=== PATIENT | male | born 1950 | race Caucasian/White ===

== ENCOUNTER 2022-07-12 09:10 | Outpatient (CLI) | payer OTHER, SELFPAY ==
[2022-07-12 15:10] LABS: Albumin* 4.3 g/dL (3.3-5.0); Chloride* 107 mmol/L (96-114); Potassium* 4.3 mmol/L (3.6-5.1); Sodium* 139 mmol/L (135-149)
[2022-07-12 15:12] LABS: Cholesterol* 198 mg/dL (90-199)
[2022-07-12 15:13] LABS: Alanine Aminotransferase* 26 U/L (4-50); Alkaline Phosphatase* 115 U/L (40-150); Aspartate Amino Transferase* 32 U/L (12-35); Bilirubin Total* 0.4 mg/dL (0.1-1.5); Blood Urea Nitrogen* 31 mg/dL (7-30); Calcium* 9.7 mg/dL (8.4-10.6); Carbon Dioxide* 25 mmol/L (20-32); Creatinine* 1.8 mg/dL (0.5-1.5); Estimated Glomerular Filt Rate 40 ml/min; Glucose* 127 mg/dL (60-115); Total Protein* 7.1 g/dL (6.0-8.3); Triglycerides* 122 mg/dL (40-149)
[2022-07-12 15:14] LABS: HDL Cholesterol* 103 mg/dL (>=40); LDL Cholesterol Calculated 71 mg/dL (<100)
== END 2022-07-12 09:11 | disposition home or self-care (01) ==
PROVIDERS: PCP Family Medicine; Visit Provider Family Medicine
DX: E78.5 Hyperlipidemia, unspecified (principal); I10 Essential (primary) hypertension; R73.03 Prediabetes
CPT/HCPCS: 80053; 80061

== ENCOUNTER 2022-08-07 11:11 | Outpatient (CLI) | payer OTHER, SELFPAY ==
[2022-08-07 15:00] LABS: Albumin* 4.1 g/dL (3.3-5.0); Chloride* 110 mmol/L (96-114); Potassium* 4.2 mmol/L (3.6-5.1); Sodium* 141 mmol/L (135-149)
[2022-08-07 15:03] LABS: Blood Urea Nitrogen* 38 mg/dL (7-30); Carbon Dioxide* 21 mmol/L (20-32); Creatinine* 2.1 mg/dL (0.5-1.5); Estimated Glomerular Filt Rate 33 ml/min; Glucose* 111 mg/dL (60-115)
[2022-08-07 15:04] LABS: Calcium* 9.3 mg/dL (8.4-10.6); Phosphorus* 4.4 mg/dL (2.5-4.5); Uric Acid* 9.8 mg/dL (2.2-8.4)
[2022-08-07 15:09] LABS: C Reactive Protein* < 0.5 mg/dL (0.5-1.0)
[2022-08-07 15:11] LABS: Creatinine Urine 67.7 mg/dL
[2022-08-07 15:16] LABS: Microalbumin Creatinine Ratio 140 mg/g (0-30); Microalbumin Urine 10 mg/dL
[2022-08-09 04:13] LABS: Kappa Qnt Free Light Chains 57.77 mg/L (3.30-19.40); Kappa-Lambda Qt FLC W/ Ratio 0.49 (0.26-1.65); Lambda Qnt Free Light Chains 118.56 mg/L (5.71-26.30)
[2022-08-10 12:11] LABS: Albumin 3.91 g/dL (3.75-5.01); Alpha 1 Globulin 0.29 g/dL (0.19-0.46); Alpha 2 Globulin 0.85 g/dL (0.48-1.05); Total Protein, Serum 6.7 g/dL (6.3-8.2)
== END 2022-08-07 11:12 | disposition home or self-care (01) ==
PROVIDERS: PCP Family Medicine; Visit Provider Internal Medicine Nephrology
DX: E78.5 Hyperlipidemia, unspecified (principal); I10 Essential (primary) hypertension; N18.9 Chronic kidney disease, unspecified; R73.01 Impaired fasting glucose; R73.03 Prediabetes
CPT/HCPCS: 80069; 82043; 82310; 82570; 83520; 83970; 84165; 84550; 86140; 87086

== ENCOUNTER 2022-08-17 10:39 | Outpatient (CLI) | payer OTHER, SELFPAY ==
--- NOTE | 2022-08-17 11:00 | CRLHL7_ITS ---
For Patients: As a result of the Cures Act, medical imaging exams and procedure reports are released immediately into your electronic medical record. You may view this report before your referring provider. If you have questions, please contact your health care provider. INDICATION: CKD-3B, HTN TECHNIQUE: Grayscale, color Doppler and power Doppler evaluation of the renal arteries. COMPARISON: None available FINDINGS: BILATERAL RENAL ARTERY DUPLEX ULTRASOUND ABDOMINAL AORTA: Peak systolic velocity = 95 cm/s. No aortic aneurysm. RIGHT KIDNEY: 8.9 cm in length. There is no hydronephrosis. Peak systolic velocity = 64 cm/second. Somewhat difficult to visualize due to the presence of a large adjacent anechoic cysts measuring 8.2 x 7.2 x 7.1 cm. Renal artery to aortic peak systolic velocity ratio = 0.7 Resistive indices: 0.6-0.7 Renal vein = patent LEFT KIDNEY: 10.9 cm in length. There is no hydronephrosis. Peak systolic velocity = 105 cm/second Renal artery to aortic peak systolic velocity ratio = 1.1 Resistive indices: 0.6-0.7 Renal vein = patent IMPRESSION: No evidence of significant renal artery stenosis. 8.2 cm anechoic cyst adjacent to the right kidney and right liver, exact etiology is difficult to determine. Dictated by Aaron Ospina MD @ 08/17/2022 12:23:30 PM (Electronically Signed)
== END 2022-08-17 10:40 | disposition home or self-care (01) ==
LOC: US 10:40
PROVIDERS: PCP Family Medicine; Visit Provider Internal Medicine Nephrology
DX: I10 Essential (primary) hypertension (principal); N18.9 Chronic kidney disease, unspecified; N28.1 Cyst of kidney, acquired
CPT/HCPCS: 76775; 93975

== ENCOUNTER 2022-10-11 11:44 | Outpatient (CLI) | payer OTHER, SELFPAY | END 2022-10-11 11:45 | disposition home or self-care (01) | LOC: NFLDREF 10-12 00:35 | PROVIDERS: PCP Family Medicine; Referring Provider Family Medicine; Visit Provider Internal Medicine Nephrology | DX: I10 Essential (primary) hypertension (principal); N18.9 Chronic kidney disease, unspecified; R73.03 Prediabetes; E66.9 Obesity, unspecified; E78.5 Hyperlipidemia, unspecified | CPT/HCPCS: 80069; 86160; 86225 ==

== ENCOUNTER 2023-04-18 08:46 | Outpatient (CLI) | payer MEDICARE, SELFPAY | END 2023-04-18 08:47 | disposition home or self-care (01) | PROVIDERS: PCP Family Medicine; Referring Provider Family Medicine; Visit Provider Internal Medicine Nephrology | DX: E78.5 Hyperlipidemia, unspecified (principal); I10 Essential (primary) hypertension; N18.9 Chronic kidney disease, unspecified; R73.03 Prediabetes; R97.20 Elevated prostate specific antigen [PSA]; R73.01 Impaired fasting glucose | CPT/HCPCS: 80061; 80069; 82043; 82570; 82728; 83540; 83550; 84550; 87086 ==

== ENCOUNTER 2023-07-05 08:23 | Outpatient (CLI) | payer MEDICARE, SELFPAY ==
--- OUTSIDE RECORDS SUMMARY | 2023-07-10 21:14 | XMS_ITS | Clinical Summary ---
Author Name Unknown Organization [facility] Address [address] [place] [address] Care Team Providers Care Manufacturing Manager Name Role Phone Unavailable Primary Care Provider Unavailabl e Source Comments Patient records contain information from all sites at [facility]. For routine questions regarding patient records, call [phone] during business hours, M-F 8:00 AM - 5:00 PM Central Time. Record requests for emergency care only can be directed to [phone] at any time.[facility] Medications Medication Sig Dispensed Refills Start Date End Date Status atorvastatin (LIPITOR) 10 mg tablet Take 1 tablet by mouth daily. 0 11/14/2010 Active metoprolol tartrate (LOPRESSOR) 25 mg tablet Take 1 tablet (25 mg total) by mouth daily. 180 tablet 3 08/07/2022 08/07/2023 Active triamterene-hydroC HLOROthiazide (DYAZIDE) 37.5-25 mg per capsule Take 2 capsules by mouth daily. 180 capsule 3 08/07/2022 08/07/2023 Active losartan (COZAAR) 50 mg tablet Take 1 tablet (50 mg total) by mouth daily. 90 tablet 3 09/04/2022 09/04/2023 Active ALPRAZolam (XANAX) 0.5 mg tablet Take 1 tablet (0.5 mg total) by mouth 2 (two) times a day as needed for anxiety. 30 tablet 1 04/22/2023 Active Active Problems Problem Noted Date Diagnosed Date Anxiety 10/16/2022 Chronic Kidney Disease (CKD) , Stage 3b Glomerular Filtration Rate (GFR) 30 To 44 08/07/2022 Hypertensive Chronic Kidney Disease (CKD) Stage 3b Glomerular Filtration Rate (GFR) 30 To 44 08/07/2022 Hyperlipidemia Mixed 08/07/2022 Hyperparathyroidism Renal Secondary 08/07/2022 Encounters Date Type Department Care Team Description 04/22/2023 3:30 PM CDT External Outreach Division of Nephrology and Hypertension in [place], [place] [address] [place] [address] Bandar Alvarado Jr., D.O. Chronic Kidney Disease (CKD), Stage 3b Glomerular Filtration Rate (GFR) 30 To 44 (HCC) (Primary Dx); Hypertensive Chronic Kidney Disease (CKD) Stage 3b Glomerular Filtration Rate (GFR) 30 To 44 (HCC); Hyperparathyroidism Renal Secondary (HCC); Hyperlipidemia Mixed; Anxiety 04/20/2023 Refill Division of Nephrology and Hypertension in [place], [place] [address] [place] [address] Bandar Alvarado Jr., D.O. Med Refill from Last 3 Months Social History Tobacco Use Types Packs/Day Years Used Date Smoking Tobacco: Never Assessed Nutrition Answer Date Recorded Nutrition: EVOO Fat Source Unknown 08/03 Nutrition: Servings of Fruits/Vegetables per Day Not on file 08/03/2022 Dental Answer Date Recorded Dental: Regular Dentist Unknown 08/03/19 Sex and Gender Information Value Date Recorded Sex Assigned at Not on file Gender Identity Not on file Sexual Orientation Not on file Last Filed Vital Signs Vital Sign Reading Time Taken Comments Blood Pressure 136/78 04/22/2023 3:32 PM CDT Pulse 104 04/22/2023 3:32 PM CDT Temperature - - Respiratory Rate - - Oxygen Saturation - - Inhaled Oxygen Concentration - - Weight 86.6 kg (190 lb 14.7 oz) 04/22/2023 3:32 PM CDT Height 171.4 cm (5' 7.48) 04/22/2023 3:32 PM CD T Body Mass Index 29.48 04/22/2023 3:32 PM CDT Plan of Treatment Health Maintenance Due Date Last Done Comments CT Colonography 1950 Cologuard 1950 Colonoscopy 1950 Colorectal Cancer Screening 1950 Creatinine Level (Kidney Fun ction Test) 1950 FIT 1950 Fasting Glucose for Diabetes Screening 1950 Hepatitis C Screening 1950 Lipid (Cholesterol) Screening 1950 Potassium Level 1950 Sodium Level 1950 COVID-19 Vaccine (#1) 03[birth year]04/1951 Depression Screening (Annual PHQ-2) 07/01/2022 Fall Risk Screen (Annual) 07/01/2022 Office Visit for Blood Press ure Check / Re-check 04/22/2024 04/22/2023 DTaP,Tdap,and Td Vaccines (3 - Td or Tdap) 07/09/2027 07/09/2017, 07/14/2007 Pneumococcal vaccine (65+ years) Completed 07/09/19, 07/09/2016 Zoster Vaccines Completed 02/10/2021, 11/29, 07/07/2020, Additional history exists Influenza Vaccine Completed 04/22/2023, , 05/16/2021, Additional history exists
--- OUTSIDE RECORDS SUMMARY | 2023-07-10 21:14 | XMS_ITS | Encounter Summary ---
Author Name Unknown Organization [facility] Address [address] [place] [address] Care Team Providers Care Product Management Intern Name Role Phone Unavailable Primary Care Provider Unavailabl e Reason for Visit * Appointment Request (Routine) - Closed Specialty Diagnoses / Procedures Referred By Sammi t Referred To Contact Nephrology and Hypertension Referral ID Status Reason Start Date Expiration Date Visits Re quested Visits Authorized [id number] Closed 08/24/2022 08/24/2023 1 Encounter Details Date Type Department Care Team (Latest Contact Info) Description 09/04/2022 10:30 AM MACHINIST 2ND SHIFT External Outreach Division of Nephrology and Hypertension in [place], [place] [address] [place] [address] Bandar Alvarado Jr., D.O. [address] [place] [address] Hypertensive Chronic Kidney Disease (CKD) Stage 3b Glomerular Filtration Rate (GFR) 30 To 44 (HCC) (Primary Dx); Hyperparathyroidism Renal Secondary (HCC); Hyperlipidemia Mixed Social History Tobacco Use Types Packs/Day Years [...] on file Sexual Orientation Not on file documented as of this encounter Last Filed Vital Signs Vital Sign Reading Time Taken Comments Blood Pressure 142/80 09/04/2022 10:51 AM MACHINIST 2ND SHIFT Pulse 94 09/04/2022 10:51 AM MACHINIST 2ND SHIFT Temperature - - Respiratory Rate - - Oxygen Saturation - - Inhaled Oxygen Concentration - - Weight 86 kg (189 lb 9.5 oz) 09/04/2022 10:51 AM MACHINIST 2ND SHIFT Height 170.8 cm (5' 7.24) 09/04/2022 10:51 AM Stella BARBA Body Mass Index 29.48 09/04/2022 10:51 AM MACHINIST 2ND SHIFT documented in this encounter Progress Notes * Bandar Alvarado Jr., D.O. - 09/04/2022 10:30 AM CST Referring Provider: DR Garcia SUBJECTIVE REASON FOR VISIT [place] out [facility] Follow-up regards elevated serum creatinine level HISTORY OF PRESENT ILLNESS Mr. Enrique is a 72 y.o. male who presents with a longstanding history of CKD with a baseline serum creatinine of 1.4-1.5 mg/dL who was noted to have an increase in serum creatinine to 1.8 mg/dL at his annual wellness visit. I was referred to visit with him. Has microalbuminuria with 140 milligrams/gram noted on his random urine study. I appreciate his sediment is inactive. His CRP is low. I also appreciate that his losartan was increased recently, and that his serum light chain levels are elevated, with a normal ratio. This could be on the background of his CKD with a creatinine level of 2.1 mg/dL. I note that his lambda light chains are 118.5, withkappa light chains a 57.7. He has no hypercalcemia, and no urinary foaming no lower extremity edema. He has no bone pain. No constitutional complaints. However, he is losing weight. He is had no bowel habit changes no melena. He is eating 2 meals per day, relates that he is less hungry because he is not working. Home blood pressures been in the 120s over 80s, without orthostatic issues. 1. Hypertension 2. Hyperlipidemia 3. Degenerative joint disease Current Outpatient Medications: atorvastatin (LIPITOR) 10 mg tablet, Take 1 tablet by mouth daily., Disp: , Rfl: losartan (COZAAR) 50 mg tablet, Take 1 tablet (50 mg total) by mouth daily., Disp: 90 tablet, Rfl: 3 metoprolol tartrate (LOPRESSOR) 25 mg tablet, Take 1 tablet (25 mg total) by mouth daily., Disp: 180 tablet, Rfl: 3 triamterene-hydroCHLOROthiazide (DYAZIDE) 37.5-25 mg per capsule, Take 2 capsules by mouth daily., Disp: 180 capsule, Rfl: 3 REVIEW OF SYSTEMS All other systems reviewed and are negative. OBJECTIVE BP 142/80 Pulse 94 Ht 170.8 cm Wt 86 kg BMI 29.48 kg/m?? PHYSICAL EXAMINATION General: Awake alert oriented HEENT: RENEE, EOMI, Mucous membranes moist, no oral lesions Neck: No Masses, No Bruits Lungs: Clear to ascultation Heart: Generally regular rhythm, he does have some skipped beats, no murmur, no rub Abdomen: Soft, Non-tender Extremities: No cyanosis, No clubbing: No edema, he has contractures of both hands Neuro: Cranial Nerves intact, he has a shuffling stooped gait strength grossly normal Skin: no suspicious lesions identified Psychiatric: Normal affect DIAGNOSTICS Note increase in serum creatinine from 1.8 mg/dL to 2.1 mg/dL microalbumin to creatinine ratio 140 milligrams/gram, undetectable CRP normal CBC normal chemistries urine sediment inactive, serum lightchain levels elevated with normal ratio, note his serum protein electrophoresis had no monoclonal protein ASSESSMENT / PLAN #1 Hypertensive Chronic Kidney Disease (CKD) Stage 3b Glomerular Filtration Rate (GFR) 30 To 44 (HCC) I am concerned regards the increase in serum creatinine level. This could be on the background of his increased dose of losartan, and I will decrease him back to 50 mg per day. Our next step would beconsideration of decreasing her changing his diuretics. We also discussed that given the unusually elevated light chain levels, which are likely reflectionof his CKD which is more advanced than apparent given his low muscle mass, that we might even consider renal biopsy. Going forward: 1. I wrote out the instructions to him 2. Decrease losartan to 50 mg per day 3. Continue with Dyazide at high doses 4. Daily blood pressure check with keeping a log for us to review 5. Reinforced he should use Tylenol only for pain relief 6. We may get to a point where we have to consider renal biopsy 7. I will check complement levels, dtwx-flbkaf-cruviobt DNA level, and ANCA anti-GBM. #2 Hyperparathyroidism Renal Secondary (HCC) We will continue to monitor his calcium and phosphorus #3 Hyperlipidemia Mixed No changes to his current regimen Total time: 30 minutes Counseling Time: 20 minutes Bandar Alvarado Jr., D.O. INIST 2ND SHIFT documented in this encounter Plan of Treatment Not on file documented as of this encounter Visit Diagnoses Diagnosis Hypertensive Chronic Kidney Disease (CKD) Stage 3b Glomerular Filtration Rate (GFR) 30 To 44 (HCC)- Primary Hyperparathyroidism Renal Secondary (HCC) Hyperlipidemia Mixed documented in this encounter
--- OUTSIDE RECORDS SUMMARY | 2023-07-10 21:14 | XMS_ITS | Encounter Summary ---
Author Name Unknown Organization [facility] Address [address] [place] [address] Care Team Providers Care Brush Trimming Machine Setter Name Role Phone Unavailable Primary Care Provider Unavailabl e Reason for Visit * Appointment Request (Routine) - Closed Specialty Diagnoses / Procedures Referred By Sammi hernandez Referred To Contact Nephrology and Hypertension Sd Hathaway M.D. [address] [place] [address] Referral ID Status Reason Start Date Expiration Date Visits Re quested Visits Authorized [id number] Closed 08/03/2022 08/03/2023 1 Encounter Details Date Type Department Care Team (Latest Contact Info) Description 08/07/2022 10:30 AM PROFESSOR OF ANTHROPOLOGY External Outreach Division of Nephrology and Hypertension in [place], [place] [address] [place] [address] Bandar Alvarado Jr., D.O. [address] [place] [address] Chronic Kidney Disease (CKD), Stage 3b Glomerular Filtration Rate (GFR) 30 To 44 (HCC) (Primary Dx); Hypertensive Chronic Kidney Disease (CKD) Stage 3b Glomerular Filtration Rate (GFR) 30 To 44 (HCC); Hyperlipidemia Mixed; Hyperparathyroidism Renal Secondary (HCC) Social History Tobacco Use Types Packs/Day Years Used Date Smoking Tobacco: Never Assessed Nutrition Answer Date Recorded Nutrition: EVOO Fat Source Unknown 08/03 Nutrition: Servings of Fruits/Vegetables per Day Not on file 08/03/2022 Dental Answer Date Recorded Dental: Regular Dentist Unknown 08/03/19 23 Sex and Gender Information Value Date Recorded Sex Assigned at Not on file Gender Identity Not on file Sexual Orientation Not on file documented as of this encounter Last Filed Vital Signs Vital Sign Reading Time Taken Comments Blood Pressure 142/72 08/07/2022 10:49 AM PROFESSOR OF ANTHROPOLOGY Pulse 94 08/07/2022 10:49 AM PROFESSOR OF ANTHROPOLOGY Temperature - - Respiratory Rate - - Oxygen Saturation - - Inhaled Oxygen Concentration - - Weight 86.6 kg (190 lb 14.7 oz) 023 10:49 AM PROFESSOR OF ANTHROPOLOGY Height 170.8 cm (5' 7.24) 08/07/2022 1 0:49 AM PROFESSOR OF ANTHROPOLOGY Body Mass Index 29.69 08/07/2022 10:49 AM PROFESSOR OF ANTHROPOLOGY documented in this encounter Progress Notes * Bandar Alvarado Jr., D.O. - 08/07/2022 10:30 AM CST Referring Provider: DR Sd Garcia SUBJECTIVE REASON FOR VISIT [place] out reach CKD [facility] Consultation regards elevated serum creatinine on the background of longstanding hypertension HISTORY OF PRESENT ILLNESS Mr. Enrique is a 71 y.o. male who presents with a notation on this year's annual wellness visit of his creatinine increasing from his usual baseline of 1.4 mg/dL to 1.8 mg/dL. He is no familial history of renal diseases or disorders. He is had no urinary outlet issues, neverhad urolithiasis nor gross hematuria. His blood pressures been well controlled, although he is had hypertension for over 25 years. He is not smoking cigarettes, does not use NSAIDs. 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 Has had no constitutional complaints but has lost some weight. This is on the background of his appetite being poor, after being laid off. He feels as though he is not very busy so hence he is not very hungry. He is had no recent GI disturbances, no unusual skin lesions, no joint pain or any other connective tissue or constitutional complaints. He is never had renal imaging and there is no record of urine studies yet. Denies urinary foaming and has never had lower extremity swelling. There has been some glucose intolerance in the past, but he does not carry a diagnosis of diabetes mellitus. His antihypertensive agents have not changed over the past 5 years. He is on a substantially elevated dose of triamterene/HCTZ, but this has been a same dose for at least 4 years. Past medical history: 1. Hypertension 2. Hyperlipidemia 3. Degenerative joint disease. Social history, No alcohol, no tobacco, retired/laid off, prior [employer]. Current Outpatient Medications: atorvastatin (LIPITOR) 10 mg tablet, Take 1 tablet by mouth daily., Disp: , Rfl: losartan (COZAAR) 100 mg tablet, Take 50 mg by mouth daily. , Disp: , Rfl: triamterene-hydroCHLOROthiazide (DYAZIDE) 37.5-25 mg per capsule, Take 2 capsules by mouth daily., Disp: 180 capsule, Rfl: 3 metoprolol tartrate (LOPRESSOR) 25 mg tablet, Take 1 tablet (25 mg total) by mouth daily., Disp: 180 tablet, Rfl: 3 REVIEW OF SYSTEMS All other systems reviewed and are negative. OBJECTIVE BP 142/72 Pulse 94 Ht 170.8 cm Wt 86.6 kg BMI 29.69 kg/m?? PHYSICAL EXAMINATION General: Awake alert oriented, hard of hearing HEENT: RENEE, EOMI, Mucous membranes moist, no oral lesions, dense bilateral left greater than right cataract Neck: No Masses, No Bruits Lungs: Clear to ascultation Heart: Occasional ectopic beats roughly every 5th to 6th beat No Murmurs or rubs Abdomen: Soft, Non-tender, large diastasis recti, no bruits Extremities: No cyanosis, No clubbing: No edema, ulnar deviation and substantial nodularity of his 2nd and 3rd MCP joints bilaterally Neuro: Cranial Nerves intact, other than he is very hard of hearing, Gait is shuffling, small stepswith difficulty arising out of the seated position Skin: Innumerable hyperpigmented attic well demarcated lesions over his back and trunk Psychiatric: Normal affect DIAGNOSTICS Creatinine 1.8 mg/dL, normal chemistries, hemoglobin A1c 5.8% ASSESSMENT / PLAN #1. 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 The worsening as of this year's labs could be artifactual, perhaps on the background of decreased effective circulating volume, or perhaps an as yet diagnosed parenchymal or architecture renal disorder is at play. His joint changes and hearing disorders are also worth mentioning, with the former possibly signaling some degree of inflammatory arthropathy which could cause interstitial nephritis, and from the latter perspective the association of Alport's type lesions associating glomerular basement membrane mismanufacture with hearing disorders. Going forward: From a diagnostic perspective: 1. Renal ultrasound with Doppler of the renal vasculature 2. Check CBC, urinalysis with urine microalbumin to creatinine ratio 3. Check serum protein electrophoresis and free serum light chain levels 4. Return to clinic next month to review results 5. Check CRP From a therapeutic perspective: 1. Continue to avoid NSAIDs and Gaming 2 inhibitors 2. Asked him to focus on getting at least 60 oz of water per day 3. Continue to foster goal blood pressure less than 130/80 which has been achieved 4. Continue on his lipid lowering agent 5. Heart healthy diet, with at least 2 meals per day. # 2. Hypertension with CKD stage IIIB As above he will avoid sodium stay well hydrated continue on his antihypertensive regimen. #3. Hyperlipidemia His lipid control is excellent we will continue with his statin agent. # 4. Secondary renal hyperparathyroidism We will monitor calcium phosphorus and PTH carefully carefully Total time: 1 hour Counseling Time: 35 minutes Bandar Alvarado Jr., D.O. ESSOR OF ANTHROPOLOGY documented in this encounter Plan of Treatment Not on file documented as of this encounter Visit Diagnoses Diagnosis Chronic Kidney Disease (CKD), Stage 3b Glomerular Filtration Rate (GFR) 30 To 44 (HCC)- Primary Hypertensive Chronic Kidney Disease (CKD) Stage 3b Glomerular Filtration Rate (GFR) 30 To 44 (HCC) Hyperlipidemia Mixed Hyperparathyroidism Renal Secondary (HCC) documented in this encounter
--- OUTSIDE RECORDS SUMMARY | 2023-07-10 21:14 | XMS_ITS | Encounter Summary ---
Author Name Unknown Organization [facility] Address [address] [place] [address] Care Team Providers Care Private Duty Nurse Name Role Phone Unavailable Primary Care Provider Unavailabl e Reason for Visit * Reason Comments Med Refill Encounter Details Date Type Department Care Team (Late st Contact Info) Description 04/20/2023 Refill Division of Nephrology and Hypertension in [place], [place] [address] [place] [address] Bandar Alvarado Jr., D.O. [address] [place] [address] Med Refill Social History Tobacco Use Types Packs/Day Years [...] on file documented as of this encounter Miscellaneous Notes * Telephone Encounter - Bandar Alvarado Jr., D.O. - 04/23/2023 12:30 PM CDT I didf this one in [place] yesterday with his visit documented in this encounter Plan of Treatment Not on file documented as of this encounter Visit Diagnoses Not on filedocumented in this encounter
--- OUTSIDE RECORDS SUMMARY | 2023-07-10 21:14 | XMS_ITS | Referral Summary ---
Author Name Unknown Organization [facility] Address [address] [place] [address] Care Team Providers Care Engineering Illustrator Name Role Phone Unavailable Primary Care Provider Unavailabl e Source Comments Patient records contain information from all sites at [facility]. For routine questions regarding patient records, call [phone] during business hours, M-F 8:00 AM - 5:00 PM Central Time. Record requests for emergency care only can be directed to [phone] at any time.[facility] Encounters Date Type Department Care Team Description 04/22/2023 3:30 PM CDT External Outreach Division of Nephrology and Hypertension in [place], [place] [address] [place] [address] Bandar Alvarado Jr., D.O. Chronic Kidney Disease (CKD), Stage 3b Glomerular Filtration Rate (GFR) 30 To 44 (HCC) (Primary Dx); Hypertensive Chronic Kidney Disease (CKD) Stage 3b Glomerular Filtration Rate (GFR) 30 To 44 (HCC); Hyperparathyroidism Renal Secondary (HCC); Hyperlipidemia Mixed; Anxiety 04/20/2023 Refill Division of Nephrology and Hypertension in [place], [place] [address] [place] [address] Bandar Alvarado Jr. D.O. Med Refill from Last 3 Months Medications Medication Sig Dispensed Refills Start Date [...] Hyperlipidemia Mixed 08/07/2022 Hyperparathyroidism Renal Secondary 08/07/2022 Social History Tobacco Use Types Packs/Day Years [...] 04/22/2023 3:32 PM CDT Plan of Treatment Not [place] [address]
--- OUTSIDE RECORDS SUMMARY | 2023-07-10 21:14 | XMS_ITS | Encounter Summary ---
Author Name Unknown Organization [facility] Address [address] [place] [address] Care Team Providers Care Telephoner Name Role Phone Unavailable Primary Care Provider Unavailabl e Reason for Visit * Appointment Request (Routine) - Closed Specialty Diagnoses / Procedures Referred By Sammi t Referred To Contact Nephrology and Hypertension Referral ID Status Reason Start Date Expiration Date Visits Re quested Visits Authorized [id number] Closed 03/29/2023 03/28/2024 1 1 Encounter Details Date Type Department Care Team (Latest Contact Info) Description 04/22/2023 3:30 PM CDT External Outreach Division of Nephrology and Hypertension in [place], [place] [address] [place] [address] Bandar Alvarado Jr., D.O. [address] [place] [address] Chronic Kidney Disease (CKD), Stage 3b Glomerular Filtration Rate (GFR) 30 To 44 (HCC) (Primary Dx); Hypertensive Chronic Kidney Disease (CKD) Stage 3b Glomerular Filtration Rate (GFR) 30 To 44 (HCC); Hyperparathyroidism Renal Secondary (HCC); Hyperlipidemia Mixed; Anxiety Social History Tobacco Use Types Packs/Day Years [...] Mass Index 29.48 04/22/2023 3:32 PM CDT documented in this encounter Progress Notes * Bandar Alvarado Jr., D.O. - 04/22/2023 3:30 PM CDT Referring Provider: No primary care provider on file. SUBJECTIVE REASON FOR VISIT [facility] out reach [facility] Follow-up regards CKD HISTORY OF PRESENT ILLNESS Mr. Enrique is a 72 y.o. male who presents with history of microalbuminuria, microscopic hematuria, and CKD. He has absolutely no complaints, and is happy to have a new job. He denies any cardiovascular, cerebrovascular, or constitutional complaints. No rash, no arthralgias. He is not noticing any urinary foaming, and he is not had any issues with urinary outlet symptoms. His bowel habits have been unchanged. No neuropathic issues no speech difficulties, no issues with his sensorium. We reviewed his labs which show his hemoglobin to be stable, his creatinine slightly improved to 1.9 mg/dL, with a slight increase in his urine microalbumin to creatinine ratio up to 240 milligrams/gram. History reviewed. No pertinent past medical history. Current Outpatient Medications: ALPRAZolam (XANAX) 0.5 mg tablet, Take 1 tablet (0.5 mg total) by mouth 2 (two) times a day as needed for anxiety., Disp: 30 tablet, Rfl: 1 atorvastatin (LIPITOR) 10 mg tablet, Take 1 [...] systems reviewed and are negative. OBJECTIVE BP 136/78 Pulse 104 Ht 171.4 cm Wt 86.6 kg BMI 29.48 kg/m?? PHYSICAL EXAMINATION General: Awake alert oriented HEENT: RENEE, EOMI, Mucous membranes moist, no oral lesions Neck: No Masses, No Bruits Lungs: Clear to ascultation Heart: Regular Rate and Rhythm, No ectopy Murmurs or rubs Abdomen: Soft, Non-tender Extremities: No cyanosis, no clubbing, he has trace nonpitting lower extremity edema, and he has Dupuytren's contractures of bilateral hands of his 3rd 4th and 5th digits. 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 He didhave an increase in lambda and kappa light chains on his chemistries done in August, with an appropriate ratio. We will monitor. Going forward: 1. Goal blood pressure less than 130s over 80s, encouraged him to check his blood pressure at home he does have a cuff 2. No NSAIDs or Gaming 2 inhibitors 3. Return to clinic in 6 months 4. Stay reasonably hydrated. #2 Hypertensive Chronic Kidney Disease (CKD) Stage 3b Glomerular Filtration Rate (GFR) 30 To 44 (HCC) His goal blood pressures have been met he has had no orthostatic issues, I have asked him to be quite careful with the sodium. Will continue his current antihypertensive regimen which includes losartan 50 mg orally daily, metoprolol tartrate 25 mg orally daily, and Dyazide, 37.5/25 mg orally twice daily. Encouraged him to be cautious as well with orthostatic issues. He will contact me if he notices these. I have ensured he has my contact information. #3 Hyperparathyroidism Renal Secondary (HCC) Calcium and phosphorus are appropriate, PTH levels acceptable. #4 Hyperlipidemia Mixed Continues on a statin. #5 Anxiety I have refilled the patient's low-dose alprazolam which he has not refilled since our last visit. As per previous we discussed the possibility of initiation of an SSRI agent, he is not interested in this. Relates that his anxiety has decreased quite a bit now that he has a new job. Total time: 30 minutes Counseling Time: 25 minutes Bandar Alvarado Jr., D.O. documented in this encounter Plan of Treatment Not on file documented as of this encounter Visit Diagnoses Diagnosis Chronic Kidney Disease (CKD), Stage 3b Glomerular Filtration Rate (GFR) 30 To 44 (HCC)- Primary Hypertensive Chronic Kidney Disease (CKD) Stage 3b Glomerular Filtration Rate (GFR) 30 To 44 (HCC) Hyperparathyroidism Renal Secondary (HCC) Hyperlipidemia Mixed Anxiety documented in this encounter
--- OUTSIDE RECORDS SUMMARY | 2023-07-10 21:14 | XMS_ITS | Clinical Summary ---
Author Name Unknown Organization [facility] Address [place], [place] [address] Care Team Providers Care Bingo Manager Name Role Phone Dayanna Hathaway Primary Care Provider Unavail able Allergies No known active allergies Medications Medication Sig Dispensed Refills Start Date End Date Status losartan (COZAAR) 100 mg tablet Take 1 tablet by mouth once daily. 0 11/14/2010 Active atorvastatin (LIPITOR) 10 mg tablet Take 1 tablet by mouth once daily. 0 11/14/2010 Active triamterene (DYRENIUM) 100 mg capsule Take 1 capsule by mouth 2 times daily. 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 Retinal hemorrhage 07/08/2006 Overview: L peripheral Regular astigmatism 07/08/2006 Presbyopia 07/08/2006 Hypermetropia 07/08/2006 Family History Medical History Relation Name Comments Diabetes Father Hypertension Father Relation Name Status Comments Father Social History Tobacco Use Types Packs/Day Years Used Date Smoking Tobacco: Never Alcohol Use Standard Drinks/Week Comments Not Asked 0 (1 standard drink = 0.6 oz pur e alcohol) Sex and Gender Information Value Date Recorded Sex Assigned at Not on file Gender Identity Not on file Sexual Orientation Not on file Obstetrics History Last Filed Vital Signs Vital Sign Reading Time Taken Comments Blood Pressure 136/90 11/14/2010 11:05 AM CDT Pulse 80 11/14/2010 11:05 AM CDT Temperature - - Respiratory Rate - - Oxygen Saturation - - Inhaled Oxygen Concentration - - Weight 92.1 kg (203 lb) 11/14/2010 11:05 AM CDT Height 171.5 cm (5' 7.5) 11/14/2010 11:05 AM CD T Body Mass Index 31.33 11/14/2010 11:05 AM CDT Plan of Treatment Health Maintenance Due Date Last Done Comments COVID-19 vaccine series (#1) 03/04/1951 Tdap 1961 Depression screening for age 12+ 1962 BMI (ht and wt on same day) for age 18+ 1968 Hepatitis C screening for age 18-79 1968 Tetanus booster 1970 Colonoscopy through age 75 09/02/1995 Lipids for age 45-75 09/02/1995 Zoster (shingles) series for age 50+ (1 of 2) 09/02/19 01 Pneumococcal series for age 65+ (1 of 1 - PCV) 016 Influenza for age 65+ 03/01/2023 Care Teams Bingo Manager Relationship Specialty Start Date End Date Dayanna Hathaway PCP - General 06/18/06
--- OUTSIDE RECORDS SUMMARY | 2023-07-10 21:14 | XMS_ITS ---
Author Name Unknown Organization [facility] Address [address] [place] [address] Care Team Providers Care Milk Pasteurizer Name Role Phone Unavailable Unavailable Unavailable Surgery Details Not on file Complications Check Surgery Details section. Procedure Estimated Blood Loss Check Surgery Details section. Procedure Findings Check Surgery Details section. Procedure Specimens Taken Check Surgery Details section.
--- OUTSIDE RECORDS SUMMARY | 2023-07-10 21:14 | XMS_ITS | Encounter Summary ---
Author Name Unknown Organization [facility] Address [address] [place] [address] Care Team Providers Care Terrazzo Journeyman Name Role Phone Unavailable Primary Care Provider Unavailabl e Reason for Visit * Appointment Request (Routine) - Closed Specialty Diagnoses / Procedures Referred By Sammi t Referred To Contact Nephrology and Hypertension Referral ID Status Reason Start Date Expiration Date Visits Re quested Visits Authorized [id number] Closed 09/06/2022 09/06/2023 1 Encounter Details Date Type Department Care Team (Latest Contact Info) Description 10/16/2022 11:30 AM CDT External Outreach Division of Nephrology and Hypertension in [place], [place] [address] [place] [address] Bandar Alvarado Jr., D.O. [address] [place] [address] Chronic Kidney Disease (CKD), Stage 3b Glomerular [...] Sign Reading Time Taken Comments Blood Pressure 138/82 10/16/2022 12:12 PM CDT Pulse 86 10/16/2022 12:12 PM CDT Temperature - - Respiratory Rate - - Oxygen Saturation - - Inhaled Oxygen Concentration - - Weight 86 kg (189 lb 9.5 oz) 10/16/2022 12:12 PM CDT Height 170 cm (5' 6.93) 10/16/2022 12:12 PM CDT Body Mass Index 29.76 10/16/2022 12:12 PM CDT documented in this encounter Progress Notes * Bandar Alvarado Jr., D.Samina. - 10/16/2022 11:30 AM CDT Referring Provider: No primary care provider on file. SUBJECTIVE REASON FOR VISIT [place] out reach CKD Clinic Follow-up regards CKD and initial consult 2 months ago HISTORY OF PRESENT ILLNESS Mr. Enrique is a 72 y.o. male who presents with a history of elevated serum creatinine level which had increased from his usual background of 1.4-1.8 mg/dL, up to a more recent value of 2.1 mg/dL. Since our visit we checked urinalysis and urine microalbumin to creatinine ratio. Urinalysis has aninactive sediment, in his microalbumin to creatinine ratio was elevated at 140 milligrams/gram, butcertainly within the sub nephrotic range category. His home blood pressures have been in the 120s to 130s over 70s and 80s without orthostatic issues or lower extremity swelling. He is avoided NSAIDsand Gaming 2 inhibitors. He is no other constitutional or B type symptoms. We reviewed his renal ultrasound which shows a substantially sized right renal cyst, 8 cm in size. This however has no other suspicious characteristics. There is no evidence of macrovascular renal artery disease but there is some increase in resistive indices suggesting nephrosclerosis. His CBC is normal and his C-reactive protein is quite low. This seemingly rules out constitutional issues. Highlights the struggled quite a bit with anxiety. This sometimes even manifest with inability to keep his appointments. He in the past has utilize very low doses of Xanax. He wonders whether I couldhelp him with this. History reviewed. No pertinent past medical history. [...] systems reviewed and are negative. OBJECTIVE BP 138/82 Pulse 86 Ht 170 cm Wt 86 kg BMI 29.76 kg/m?? PHYSICAL EXAMINATION General: Awake alert oriented HEENT: RENEE, EOMI, Mucous membranes moist, no oral lesions, very poor dentition Neck: No Masses, No Bruits Lungs: Clear to ascultation Heart: Regular Rate and Rhythm, No ectopy Murmurs or rubs Abdomen: Soft, Non-tender Extremities: No cyanosis, No clubbing: No edema Neuro: Cranial Nerves intact, he has a shuffling forward stooped accelerated gait strength grossly normal Skin: no suspicious lesions identified Psychiatric: Normal affect DIAGNOSTICS Note serum creatinine stable 2.1 mg/dL, normal CBC, normal CRP, normal urinalysis with microalbuminto creatinine ratio 140 milligrams/gram ASSESSMENT / PLAN #1 Chronic Kidney Disease (CKD), Stage 3b Glomerular Filtration Rate (GFR) 30 To 44 (HCC) 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 I can not rule out a degree of inherited basement membrane abnormalities, IgA, or thin basement membrane nephropathy. I do not believe a renal biopsy would be helpful at this point and we will continue to monitor carefully. Going forward: 1. Goal blood pressure less than 120/80-achieved 2. Avoid NSAIDs and Gaming 2 inhibitors 3. Plenty of hydration, keep his urine band nailer in color than lemonade, including at least 64 oz of liquid per day 4. Return to Nephrology in 6 months or sooner if necessary. #2 Hypertensive Chronic Kidney Disease (CKD) Stage 3b Glomerular Filtration Rate (GFR) 30 To 44 (HCC) We will continue to monitor blood pressure, he has a cuff at home and he will avoid sodium keeping his intake less than 2500 mg of sodium per day. #3 Hyperparathyroidism Renal Secondary (HCC) We will continue to monitor his calcium and phosphorus as well as PTH levels on a semi annual basis. These are acceptable for now do not need changed. #4 Hyperlipidemia Mixed We will continue to monitor carefully #5 Anxiety I did prescribe a low-dose of alprazolam 0.5 mg to be used up to twice daily in situationally anxiety provoking situations only. We could consider an SSRI agent for long-term management. Total time: 30 minutes Counseling Time: 20 minutes Bandar Alvarado Jr., D.O. documented in [...]
== END 2023-07-05 08:24 | disposition home or self-care (01) ==
LOC: NFLDREF 07-10 21:12
PROVIDERS: PCP Family Medicine; Referring Provider Family Medicine; Visit Provider Family Medicine
DX: E78.5 Hyperlipidemia, unspecified (principal); R73.03 Prediabetes; R97.20 Elevated prostate specific antigen [PSA]
CPT/HCPCS: 80053; 80061; G0103

== ENCOUNTER 2023-09-26 11:08 | Outpatient (CLI) | payer MEDICARE, SELFPAY ==
--- OUTSIDE RECORDS SUMMARY | 2023-10-04 11:56 | XMS_ITS | Clinical Summary ---
Author Name Unknown Organization [facility] Address [place], [place] [address] Care Team Providers Care Tipple Boss Name Role Phone Dayanna Hathaway Primary Care [...] Health Maintenance Due Date Last Done Comments Tdap 1961 Depression screening for age 12+ 1962 BMI (ht and wt on same day) for age 18+ 1968 Hepatitis C screening for age 18-79 1968 Tetanus booster 1970 Colonoscopy through age 75 09/02/1995 Lipids for age 45-75 09/02/1995 Zoster (shingles) series for age 50+ (1 of 2) 09/02/19 Pneumococcal series for age 65+ (1 of 1 - PCV) 016 COVID-19 vaccine series ( - season) 3 Influenza for age 65+ 03/01/2024 Care Teams Tipple Boss Relationship Specialty Start Date End Date Dayanna Hathaway PCP - General 06/18/06
== END 2023-09-26 11:09 | disposition home or self-care (01) ==
LOC: NFLDREF 09-27 06:47
PROVIDERS: PCP Family Medicine; Referring Provider Family Medicine; Visit Provider Internal Medicine Nephrology
DX: E78.5 Hyperlipidemia, unspecified (principal); R73.03 Prediabetes; I12.9 Hypertensive chronic kidney disease with stage 1 through stage 4 chronic kidney disease, or unspecified chronic kidney disease; N18.32 Chronic kidney disease, stage 3b
CPT/HCPCS: 80061; 80069; 82043; 82570; 82728; 83540; 83550; 84450; 84460; 84550

== ENCOUNTER 2024-04-09 11:05 | Outpatient (CLI) | payer MEDICARE, SELFPAY ==
--- OUTSIDE RECORDS SUMMARY | 2024-04-10 11:41 | XMS_ITS | Clinical Summary ---
Author Organization [facility] Address [address] [place] [address] Care Team Providers Care Campus Safety Officer Name Role Phone Unavailable Primary Care Provider Unavailabl e Source Comments Patient records contain information from all sites at [facility]. For routine questions regarding patient records, call [phone] during business hours, M-F 8:00 AM - 5:00 PM Central Time. Record requests for emergency care only can be directed to [phone] at any time.[facility] Medications Medication Sig Dispensed Refills Start Date End Date Status atorvastatin (LIPITOR) 10 mg tablet Take 1 tablet by mouth daily. 11/14/2010 Active metoprolol tartrate (LOPRESSOR) 25 mg tablet Take 1 tablet (25 mg total) by mouth daily. 180 tablet 3 08/07/2022 Active triamterene-hydroCH LOROthiazide (DYAZIDE) 37.5-25 mg per capsule Take 2 capsules by mouth daily. 180 capsule 3 08/07/2022 Active losartan (COZAAR) 50 mg tablet Take 1 tablet (50 mg total) by mouth daily. 90 tablet 3 09/04/2022 Active ALPRAZolam (XANAX) 0.5 mg tablet Take 1 tablet (0.5 mg total) by mouth 2 (two) times a day as needed for anxiety. 30 tablet 1 04/22/2023 Active Active Problems Problem Noted Date Diagnosed Date Anxiety 10/16/2022 Chronic Kidney Disease (CKD) , Stage 3b Glomerular Filtration Rate (GFR) 30 To 44 08/07/2022 Hypertensive Chronic Kidney Disease With Stage 1 Through Stage 4 Chronic Kidney Disease, Or Unspecified Chronic Kidney Disease 08/07/2022 Hyperlipidemia Mixed 08/07/2022 Hyperparathyroidism Renal Secondary [...] Sign Reading Time Taken Comments Blood Pressure 140/84 10/01/2023 9:52 AM CDT Pulse 91 10/01/2023 9:52 AM CDT Temperature - - Respiratory Rate - - Oxygen Saturation - - Inhaled Oxygen Concentration - - Weight 90.3 kg (199 lb 1.2 oz) 10/01/2023 9:52 A M CDT Height 170 cm (5' 6.93) 10/01/2023 9:52 AM CDT Body Mass Index 31.25 10/01/2023 9:52 AM CDT Plan of Treatment Health Maintenance Due Date Last Done Comments CT Colonography 1950 Cologuard 1950 Colonoscopy 1950 Colorectal Cancer Screening 1950 Creatinine Level (Kidney Fun ction Test) 1950 FIT 1950 Fasting Glucose for Diabetes Screening 1950 Hepatitis C Screening 1950 Lipid (Cholesterol) Screening 1950 Potassium Level 1950 Sodium Level 1950 Depression Screening (Annual PHQ-2) 07/01/2023 Fall Risk Screen (Annual) 07/01/2023 Office Visit for Blood Press ure Check / Re-check 12/31/2023 10/01/2023 COVID-19 Vaccine (1 - 2023-2 5 season) 2024 Influenza Vaccine (#1) 2024 , 05/02/2022, 05/16/2021, Additional history exists DTaP,Tdap,and Td Vaccines (3 - Td or Tdap) 07/09/2027 07/09/2017, 07/14/2007 Pneumococcal vaccine (65+ years) Completed 07/09/19 18, 07/09/2016 Zoster Vaccines Completed 02/10/2021, 11/29, 07/07/2020, Additional history exists
--- OUTSIDE RECORDS SUMMARY | 2024-04-10 11:42 | XMS_ITS ---
Author Organization [facility] Address [address] [place] [address] Care Team Providers Care Research And Development Scientist Name Role Phone Unavailable Unavailable Unavailable Surgery Details Not on file Complications Check Surgery Details section. Procedure Estimated Blood Loss Check Surgery Details section. Procedure Findings Check Surgery Details section. Procedure Specimens Taken Check Surgery Details section.
--- OUTSIDE RECORDS SUMMARY | 2024-04-10 11:42 | XMS_ITS | Referral Summary ---
Author Organization [facility] Address [address] [place] [address] Care Team Providers Care Offline Cutter Name Role Phone Unavailable Primary Care Provider Unavailabl e Source Comments Patient records contain information from all sites at [facility]. For routine questions regarding patient records, call [phone] during business hours, M-F 8:00 AM - 5:00 PM Central Time. Record requests for emergency care only can be directed to [phone] at any time.[facility] Medications Medication Sig Dispensed Refills Start Date [...] 10/01/2023 9:52 AM CDT Plan of Treatment Not on file
--- OUTSIDE RECORDS SUMMARY | 2024-04-10 11:42 | XMS_ITS | Clinical Summary ---
Author Organization [facility] Address [place], [place] [address] Care Team Providers Care Incinerator Attendant Name Role Phone Dayanna Hathaway Primary Care [...] Date Lattice degeneration of peripheral retina 2006 Overview (07/08/2006): L 1:00 Retinal hemorrhage 07/08/2006 Overview (07/08/2006): L peripheral Regular astigmatism 07/08/2006 Presbyopia 07/08/2006 [...] 1 - PCV) 016 COVID-19 vaccine series (2023- season) 4 Influenza for age 65+ 03/01/2024 Care Teams Incinerator Attendant Relationship Specialty Start Date End Date Dayanna Hathaway PCP - General 06/18/06
== END 2024-04-09 11:06 | disposition home or self-care (01) ==
LOC: NFLDREF 04-10 11:34
PROVIDERS: PCP Family Medicine; Referring Provider Family Medicine; Visit Provider Internal Medicine Nephrology
DX: I12.9 Hypertensive chronic kidney disease with stage 1 through stage 4 chronic kidney disease, or unspecified chronic kidney disease (principal); N18.2 Chronic kidney disease, stage 2 (mild)
CPT/HCPCS: 80069; 82043; 82570; 82728; 83540; 83550; 84550; 86140

== ENCOUNTER 2024-07-13 11:09 | Outpatient (CLI) | payer MEDICARE, SELFPAY | END 2024-07-13 11:10 | disposition home or self-care (01) | LOC: NFLDREF 07-20 04:32 | PROVIDERS: PCP Family Medicine; Referring Provider Family Medicine; Visit Provider Family Medicine | DX: E78.5 Hyperlipidemia, unspecified (principal); R97.20 Elevated prostate specific antigen [PSA]; Z12.5 Encounter for screening for malignant neoplasm of prostate | CPT/HCPCS: 80053; 80061; G0103 ==

== ENCOUNTER 2024-12-02 11:03 | Outpatient (CLI) | payer MEDICARE, SELFPAY | END 2024-12-02 11:04 | disposition home or self-care (01) | LOC: NFLDREF 12-04 22:57 | PROVIDERS: PCP Family Medicine; Referring Provider Family Medicine; Visit Provider Internal Medicine Nephrology | DX: N18.9 Chronic kidney disease, unspecified (principal); I12.9 Hypertensive chronic kidney disease with stage 1 through stage 4 chronic kidney disease, or unspecified chronic kidney disease; E78.5 Hyperlipidemia, unspecified; N25.81 Secondary hyperparathyroidism of renal origin; E66.9 Obesity, unspecified; R73.03 Prediabetes; R73.01 Impaired fasting glucose; N40.0 Benign prostatic hyperplasia without lower urinary tract symptoms | CPT/HCPCS: 80061; 80069; 82043; 82570; 82728; 83540; 83550; 83970; 84450; 84460; 84550 ==

== ENCOUNTER 2025-06-09 11:49 | Outpatient (CLI) | payer MEDICARE, SELFPAY | END 2025-06-09 11:50 | disposition home or self-care (01) | LOC: NFLDREF 06-15 17:45 | PROVIDERS: PCP Family Medicine; Referring Provider Family Medicine; Visit Provider Internal Medicine Nephrology | DX: I12.9 Hypertensive chronic kidney disease with stage 1 through stage 4 chronic kidney disease, or unspecified chronic kidney disease (principal); N18.9 Chronic kidney disease, unspecified; R80.9 Proteinuria, unspecified | CPT/HCPCS: 80061; 80069; 82043; 82570; 82728; 83540; 83550; 83970; 84450; 84460; 84550; 86140 ==